=== PATIENT | male | born 1980 | race Hispanic/Latino ===

== ENCOUNTER 2017-09-12 05:46 | Emergency (ER) | payer SELFPAY | END 2017-09-12 06:15 | disposition left against medical advice (07) | LOC: ED 05:46 | DX: Z48.02 Encounter for removal of sutures (principal); Z53.21 Procedure and treatment not carried out due to patient leaving prior to being seen by health care provider ==

== ENCOUNTER 2017-09-13 23:52 | Emergency (ER) | payer SELFPAY ==
[2017-09-14 00:04] VITALS: BP 128/98
[2017-09-14] MEDS ORDERED: MOTRIN PO ONE (02:19)
[2017-09-14] MEDS ORDERED: ROCEPHIN IM STA (02:19)
[2017-09-14] MEDS ORDERED: XYLOCAINE 1% MPF 5 mL INFILTRATI ONE (02:19)
--- NOTE | 2017-09-14 02:19 | Emergency Department Report ---
- General Chief Complaint: Skin/Abscess/Foreign Body Stated Complaint: LEFT LEG PAIN Time Seen by Provider: 09/14/17 02:06 Source: patient Mode of arrival: Ambulatory Limitations: No Limitations - History of Present Illness Initial Comments: This is a 36-year-old male here reports that he has a cut to his left leg is about where he cut on car about 3-4 weeks ago. He said he had stitches placed at [address] [place] [address] and he attempted to take stitches out himself. He said he went for follow-up 2 weeks and 6 stated that this had to keep stitches in and keep prepped up. His it was swollen. He said he took stitches out 3 days ago. Reports redness and swelling with discharge coming from side. Denies any odor coming from side. He is also complaining of right shoulder pain this been ongoing for a while without any injury. Patient is also reported that he has pinkeye that he has been treated for but he did not complete the eyedrops and it didn't go away so he is requesting antibiotic eyedrops for pinkeye. He said his eye is red and itchy and denies any foreign body sensation. Denies any eye pain or trauma. Immunizations up-to-date including tetanus. Pain is elevated at 10 to left leg and feels sore. Forced movement and touch better. Rest. He is not on any antibiotic and he said he took [id number] pain medication without any relief. Onset/Timin -: week(s) Extremity Location: Left: Lower Leg (redness, swelling, pain with open wound that is draining.) 1 - Patient with 12.5 cm wound that is open and draining pus. Surrounding erythema around the wound. Minimal pus drainage. Tender to palpation with mild swelling and no induration. Noted 3 sutures still to want. Place: home Patient Tetanus UTD: Yes (he said he received [facility] 2018) Context: accidental Associated Symptoms: pain, other (report in shoulder pain and also eye redness from previous pinkeye which he did not complete antibiotic and he doesn't know where it is). denies: loss of feeling/numbness, suspect foreign body present, unable to move injured part, weakness followed by dizziness, nausea/vomiting, fever Treatments Prior to Arrival: NSAIDS, other (patient said he attempted to remove stitches himself) - Related Data Previous Rx's Medication Instructions Recorded Last Taken Type Gentamicin 0.3% Ophth Soln 2 drops OP Q8H 10 Days #1 bottle 09/14/17 Unknown Rx Ibuprofen [Motrin] 600 mg PO Q8H PRN #12 tablet 09/14/17 Unknown Rx Sulfamethoxazole/Trimethoprim 1 each PO BID 10 Days #20 tablet 09/14/17 Unknown Rx [Bactrim DS TAB] Allergies Allergy/AdvReac Type Severity Reaction Status Date / Time No Known Allergies Allergy Verified 09/14/17 00:03 ED Review of Systems ROS: Stated complaint: LEFT LEG PAIN Other details as noted in HPI Constitutional: denies: chills, fever Eyes: other (right eye red). denies: eye pain, eye discharge, vision change ENT: denies: ear pain, throat pain Respiratory: denies: cough, shortness of breath, SOB with exertion, SOB at rest , stridor, wheezing Cardiovascular: denies: chest pain, palpitations Gastrointestinal: denies: abdominal pain, nausea, vomiting Musculoskeletal: arthralgia (right shoulder chronic). denies: back pain, joint swelling Skin: other (open wound to left leg that is draining and red with pain.). denies: rash, lesions Neurological: denies: headache, weakness, numbness, paresthesias, abnormal gait , vertigo ED Past Medical Hx - Past Medical History Previous Medical History?: No - Surgical History Past Surgical History?: Yes Additional Surgical History: left leg. eye - Family History Family history: hypertension - Social History Smoking Status: Current Every Day Smoker Substance Use Type: None - Medications Home Medications: Home Medications Medication Instructions Recorded Confirmed Last Taken Type Gentamicin 0.3% Ophth Soln 2 drops OP Q8H 10 Days #1 bottle 09/14/17 Unknown Rx Ibuprofen [Motrin] 600 mg PO Q8H PRN #12 tablet 09/14/17 Unknown Rx Sulfamethoxazole/Trimethoprim 1 each PO BID 10 Days #20 tablet 09/14/17 Unknown Rx [Bactrim DS TAB] ED Physical Exam - General Limitations: No Limitations General appearance: alert, in no apparent distress - Head Head exam: Present: atraumatic, normocephalic, normal inspection - Eye Eye exam: Present: PERRL, EOMI. Absent: normal appearance, nystagmus, periorbital swelling, periorbital tenderness Pupils: Present: normal accommodation - Expanded Eye Exam Expanded Eyelids: Normal Inspection: Right (bilateral) Sclera/Conjunctival: Normal Inspection: Left, Injection: Right (erythema) Anterior chamber: Normal Inspection: Bilateral Visual acuity (R) = 20/: 40 (20/30 all around) Visual acuity (L) = 20/: 40 With correction: No - ENT ENT exam: Present: normal exam, normal orophraynx, mucous membranes moist, TM's normal bilaterally, normal external ear exam - Neck Neck exam: Present: normal inspection, full ROM, other (no C-spine tenderness). Absent: tenderness, meningismus, lymphadenopathy - Respiratory Respiratory exam: Present: normal lung sounds bilaterally. Absent: respiratory distress, chest wall tenderness - Cardiovascular Cardiovascular Exam: Present: regular rate, normal rhythm, normal heart sounds, rubs. Absent: systolic murmur, diastolic murmur - GI/Abdominal GI/Abdominal exam: Present: soft, normal bowel sounds. Absent: distended, tenderness, rigid - Extremities Exam Extremities exam: Present: full ROM, tenderness (left leg), normal capillary refill, other (no clubbing, cyanosis or edema to Extremities. +2 pulses to all extremities. No contusion or abrasion but patient does have open wound to left posterior leg. Erythema with scant amount of drainage and tells her to palpate around side. No neurovascular compromise). Absent: normal inspection, pedal edema, joint swelling, calf tenderness - Expanded Lower Extremity Exam Left Hip exam: Present: normal inspection, full ROM, pelvic stability. Absent: tenderness, swelling, abrasion, laceration, ecchymosis, deformity, crepidus, dislocation, erythema, external rotation, internal rotation, shortening Upper Leg exam: Present: normal inspection, full ROM. Absent: tenderness, swelling, abrasion, laceration, ecchymosis, deformity, crepidus, dislocation, erythema Knee exam: Present: normal inspection, full ROM, full knee extension. Absent: tenderness, swelling, abrasion, laceration, ecchymosis, deformity, crepidus, dislocation, erythema, effusion, pain w/ pronation/supination, posterior draw sign, pain/laxity with valgus, pain/laxity with varus Lower Leg exam: Present: normal inspection, full ROM, tenderness (around laceration and open wound), swelling (mild swelling around open wound laceration ), laceration (that is now open.), erythema. Absent: abrasion, ecchymosis, deformity, crepidus, dislocation, palpable cord, Quan's sign Ankle exam: Present: normal inspection, full ROM. Absent: tenderness, swelling , abrasion, laceration, ecchymosis, deformity, crepidus, dislocation, erythema Foot/Toe exam: Present: normal inspection, full ROM. Absent: tenderness, swelling, abrasion, laceration, ecchymosis, deformity, crepidus, dislocation, erythema, amputation, puncture wound, foreign body, calcaneal tenderness, tenderness at base of 5th metatarsal, nail avulsion, subungual hematoma Neuro vascular tendon exam: Present: no vascular compromise. Absent: pulse deficit, abnormal cap refill, motor deficit, sensory deficit, tendon deficit, extremity cold to touch, pallor, abnormal 2-point discrimination, foot drop, peroneal nerve deficit, significant pain with passive ROM of distal joint Gait: Positive: observed and normal - Back Exam Back exam: Present: normal inspection, full ROM, other (ambulates without any difficulties) - Neurological Exam Neurological exam: Present: alert, oriented X3, normal gait - Psychiatric Psychiatric exam: Present: normal affect, normal mood - Skin Skin exam: Present: warm, dry, other (laceration that is dehisced) - Expanded Skin Exam Expanded Type of lesion: Present: laceration (dehisced) Distribution of rash: LLE (posterior) Description of rash: Present: size (12.5 cm), tenderness, erythematous ( surrounding erythema around dehisced wound), swelling, discharge (scant). Absent: petechial, purpuic, urticarial, crusting, fluctuant, indurated ED Course Vital Signs 09/13/17 23:57 Temperature 98.6 F Pulse Rate 100 H Respiratory 18 Rate Blood Pressure 128/98 O2 Sat by Pulse 100 Oximetry - Reevaluation(s) Reevaluation #1: 09/14/17 03:31 She given Motrin 800 mg by mouth for pain to left leg wound which resolved. Left leg following cleansing with normal saline irrigated, tends about a day and an normal saline and Neosporin ointment placed followed by sterile dry dressing. He also received Rocephin 1 g IM for cellulitis to left leg wound that is dehisced. I also removed 3 Ethilon sutures from wound. Patient also noted to have some pinkeye and will give him antibiotic. Right shoulder is better ED Medical Decision Making - Medical Decision Making ED course 36-year-old male presented emergency room report that he had laceration to his left leg 3-4 weeks ago and was seen at [facility] where they placed stitches. He said he went back 2 weeks later and is told him that it was too swollen and he needs to come back so he decided to take stitches out 2 days ago and now reporting no wound is red and swollen and draining pus and its open after he tried to take stitches out himself. Patient reports that he had pinkeye to his right eye and was given antibiotic eyedrops but he lost it and did not complete and he thinks he Tabitha pinkeye because his eye still red and itchy. He is also complaining of right shoulder pain that comes and go and this is a chronic condition. He has full range of motion to his extremities and no deformity noted to shoulder joint. I examined patient and he is in stable condition. Pain is better with Motrin 800 mg by mouth. Wound dehisced left leg laceration and he had3 stitches which was removed. Wound cleansed and irrigated, but again ointments used a clean wound and again cleansed with normal saline followed by Neosporin ointment and sterile gauze dressing. His tetanus vaccine is up-to-date. A/P 1: Wound dehisced: Irrigated with normal saline, cleaned with Betadine-soaked followed by normal saline and Neosporin ointment and sterile dry dressing placed side. We'll also refer to wound care center. 2: Cellulitis open wound-Rocephin 1 g IM given in emergency room without any adverse reaction and plan to send home and antibiotic. Patient to follow up outpatient at [facility] and if he cannot get into some outside Medical Center he can return to the emergency room in 4 days for reevaluation 3: Musculoskeletal pain: Better with Motrin plan to discharge home with pain medication 4: Conjunctivitis right eye: Plan to discharge home with antibiotic ophthalmic and to refer to division manager. Prescription for Bactrim DS, Motrin and gentamicin ophthalmic given to patient for discharge. She is educated on wound care, medication, diagnosis and need to follow-up. Referral to wound care and [facility] for primary care and he voiced understanding of need to follow-up. Patient discharged home in stable condition and pain is controlled. Vital signs are stable and is afebrile. Patient to follow-up with [facility] and wound care center in 4 days and if he cannot get and then he needs to return to the emergency room for reevaluation and he was instructed on this. I also instructed him that if he developed increased redness, pain, swelling, fever and/or chills, numbness or tingling to his left lower extremity to return to the emergency room SOWMYA. Voiced understanding. Critical care attestation.: If time is entered above; I have spent that time in minutes in the direct care of this critically ill patient, excluding procedure time. ED Disposition Clinical Impression: Wound dehiscence, Cellulitis of leg, left, Visit for suture removal, Musculoskeletal pain Conjunctivitis, right eye Qualifiers: Conjunctivitis type: acute Acute conjunctivitis type: unspecified Qualified Code(s): H10.31 - Unspecified acute conjunctivitis, right eye Disposition: TO HOME OR SELFCARE Is pt being admited?: No Does the pt Need Aspirin: No Condition: Stable Instructions: Conjunctivitis (ED), Acute Wound Care (ED), Cellulitis (ED), Musculoskeletal Pain (ED) Additional Instructions: Take antibiotic as prescribed Follow-up with your primary care physician in 4 days and if he cannot get into primary care then he could return to emergency room for evaluation of wound Keep affected area clean and dry. Followed discharge instruction on acute wound care . Take antibiotic eyedrops for pinkeye as instructed Take Motrin for pain Please return to emergency room if you develop increasing redness, streaking, fever, difficulty moving in and the left leg and increase in pain. Prescriptions: Gentamicin 0.3% Ophth Soln 2 drops OP Q8H 10 Days #1 bottle Ibuprofen [Motrin] 600 mg PO Q8H PRN #12 tablet PRN Reason: Pain Sulfamethoxazole/Trimethoprim [Bactrim DS TAB] 1 each PO BID 10 Days #20 tablet Referrals: PRIMARY CARE, [Primary Care Provider] - 09/18/17 KEVIN ADAM MD [Staff Physician] - 2-3 Days [facility] [Outside] - 09/18/17 [facility] [Outside] - 09/18/17 Forms: Work/School Release Form(ED)
[2017-09-14] MEDS ORDERED: TRIPLE ANTIBIOTIC TP ONE (02:20)
== END 2017-09-14 04:04 | disposition home or self-care (01) ==
LOC: ED 23:52
DX: T81.30XA Disruption of wound, unspecified, initial encounter (principal); L03.116 Cellulitis of left lower limb; H10.9 Unspecified conjunctivitis; M79.1 Myalgia; F17.200 Nicotine dependence, unspecified, uncomplicated
CPT/HCPCS: 96372; 99283; J0696; A6250